=== PATIENT | male | born 1940 | race Caucasian/White ===

== ENCOUNTER 2017-06-06 16:39 | Inpatient (IN) | payer MEDICARE ==
[~2017-06-06 16:39] MED LIST: ALFU10TA2 PO; AMLO5TAB96 PO; ASCO500C PO; ASPI81TA82 PO; ATOR20TA42 PO; CALCCHW25 PO; CENTTAB9 PO; EZET10 PO; FENO50TA PO; LISI-360 PO; POTA99TA12 PO; PROT40TA PO; VENL-39 PO
[2017-06-06 16:58] VITALS: BP 155/85; PULSE 100; RESP 28; TEMP 98; O2SAT 95
[2017-06-06 17:37] LABS: AUTOMATED NEUTROPHIL # 11.1 TH/MM3 (1.8-7.7); BASOPHIL % 0.1 % (0.0-2.0); EOSINOPHIL # 0.1 TH/MM3 (0-0.4); EOSINOPHIL % 0.6 % (0.0-4.0); HEMOGLOBIN 13.2 GM/DL (13.0-17.0); LYMPH % 12.1 % (9.0-44.0); LYMPHOCYTE # 1.7 TH/MM3 (1.0-4.8); MEAN CORPUSCULAR HEMOGLOBIN 31.5 PG (27.0-34.0); MEAN CORPUSCULAR HGB CONC 34.6 % (32.0-36.0); MEAN PLATELET VOLUME 7.7 FL (7.0-11.0); MONO % 6.3 % (0.0-8.0); MONOCYTE # 0.9 TH/MM3 (0-0.9); NEUT % 80.9 % (16.0-70.0); PLATELET COUNT 278 TH/MM3 (150-450); RED BLOOD COUNT 4.18 MIL/MM3 (4.50-5.90); RED CELL DISTRIBUTION WIDTH 14.4 % (11.6-17.2); WHITE BLOOD COUNT 13.7 TH/MM3 (4.0-11.0)
--- NOTE | 2017-06-06 17:43 | RADRPT ---
EXAM DATE/TIME: 06/06/2017 17:30 [facility] COMPARISON: No previous studies available for comparison. INDICATIONS : Shortness of breath. MEDICAL HISTORY : None. SURGICAL HISTORY : None. ENCOUNTER: Initial ACUITY: 1 day PAIN SCORE: 0/10 LOCATION: Bilateral chest FINDINGS: PA and lateral views of the chest demonstrate the lungs to be symmetrically aerated without evidence of mass, infiltrate or effusion. The cardiomediastinal contours are unremarkable. Mild anterior wedg ing of 2 midthoracic vertebral bodies. CONCLUSION: 1. No acute cardiopulmonary disease. 2. Age-indeterminate compression deformities involving 2 midthoracic vertebral bodies. Jw Lezama Jr., MD on June 06, 2017 at 17:40 Board Certified Radiologist. This report was verified electronically.
[2017-06-06 17:48] LABS: INTERNATIONAL NORMALIZED RATIO 1.1 RATIO; PROTHROMBIN TIME - PATIENT 10.7 SEC (9.8-11.6)
[2017-06-06 18:00] LABS: BILIRUBIN, URINE NEG (NEG); BLOOD, URINE NEG (NEG); GLUCOSE,URINE NEG (NEG); KETONE, URINE NEG (NEG); MUCUS URINE FEW /lpf (OCC); NITRITE,URINE NEG (NEG); URINE COLOR YELLOW (YELLW/STRAW); URINE LEUKOCYTE ESTERASE NEG (NEG)
[2017-06-06 18:05] LABS: ALBUMIN 4.2 GM/DL (3.4-5.0); AST (GOT) 24 U/L (15-37); BICARBONATE 24.5 MEQ/L (21.0-32.0); BLOOD UREA NITROGEN 34 MG/DL (7-18); CALCIUM 9.3 MG/DL (8.5-10.1); CHLORIDE 104 MEQ/L (98-107); CREATININE 2.48 MG/DL (0.60-1.30); GLOMERULAR FILTRATION RATE 26 ML/MIN (>89); GLUCOSE,RANDOM 127 MG/DL (74-106); SODIUM (NA) 136 MEQ/L (136-145)
[2017-06-06 18:21] LABS: ALKALINE PHOSPHATASE 46 U/L (45-117); ALT (GPT) 37 U/L (12-78); TOTAL BILIRUBIN ADULT 0.4 MG/DL (0.2-1.0); TOTAL PROTEIN 8.6 GM/DL (6.4-8.2); TROPONIN I LESS THAN 0.02 NG/ML (0.02-0.05)
--- NOTE | 2017-06-06 19:18 | RADRPT ---
EXAM DATE/TIME: 06/06/2017 18:31 [facility] COMPARISON: No previous studies available for comparison. INDICATIONS : Dizziness. RADIATION DOSE: 56.35 CTDIvol (mGy) MEDICAL HISTORY : Hypertension. Cardiovascular disease SURGICAL HISTORY : None. ENCOUNTER: Initial ACUITY: 1 day PAIN SCALE: 0/10 LOCATION: cranial TECHNIQUE: Multiple contiguous axial images were obtained of the head. Using automated exposure control and adj ustment of the mA and/or kV according to patient size, radiation dose was kept as low as reasonably a chievable to obtain optimal diagnostic quality images. DICOM format image data is available electro nically for review and comparison. FINDINGS: CEREBRUM: The ventricles are normal for age. No evidence of midline shift, mass lesion, hemorrhage or acute in farction. No extra-axial fluid collections are seen. POSTERIOR FOSSA: The cerebellum and brainstem are intact. The 4th ventricle is midline. The cerebellopontine angle i s unremarkable. EXTRACRANIAL: The visualized portion of the orbits is intact. SKULL: The calvaria is intact. No evidence of skull fracture. CONCLUSION: 1. No acute findings in the brain. Jw Davis MD on June 06, 2017 at 19:16 Board Certified Radiologist. This report was verified electronically.
[2017-06-06 19:42] VITALS: BP 147/71; PULSE 91; RESP 16; O2SAT 85
--- NOTE | 2017-06-06 19:46 | PD ---
HPI Chief Complaint: Syncope/Near-Syncope Time Seen by Provider: 19:34 Travel History International Travel<30 days: No Contact w/Intl Traveler<30days: No Traveled to known affect area: No History of Present Illness HPI The patient is a 76 year old male who presents to the [facility] emergency department with a 1 and a half month history of interim lightheaded sensation and dyspnea on exertion. Patient reports having an occasional dry cough. The patient reports that it began shortly after in late March being diagnosed with influenza. The patient reports that he seemed to recover from the acute illness, however the symptoms have remained. He has seen his primary care physician regarding this. He has also been referred to his barrel finisher. He reports that he last had a stress test done in 2014. He had a cardiac catheterization last done approximately 15 years ago that was unremarkable. He denies any prior history of coronary artery disease, NE, congestive heart failure, DVT, or PE. He reports that he has been diagnosed with mild COPD in the past. He denies being on any inhalers. On review of systems otherwise, the patient denies having any known recent fevers, chest congestion, lower extremity edema or calf pain, neck pain, chest pain, abdominal pain, vomiting, diarrhea, or neurologic symptoms. The patient presents this evening to the emergency department after having a syncopal event at home. The patient was witnessed to have a syncopal event. The patient had his blood pressure taken just after the event and it was noted to be 77/44 with a pulse of 85. The person that witnessed the syncopal event is available at this time and reports that he had shaking of his arms briefly and then fell to the ground on his buttock area. The patient reports that he has tailbone pain, buttock pain, right shoulder pain. The patient denies having any loss of bowel or bladder control with this. He denies having any tongue biting. The patient had no change in mentation after awakening from the syncopal event. Dr. Roland PCP Dr. Macdonald- Finishing Area Operator Dr. Booker- Urologist Dr. Jean Claude Us- Revenue Stamp Clerk [facility] Past Medical History Narrative Medical The patient's past medical history is significant for benign prostate hyperthrophy, COPD- borderline, depression, hyperlipidemia, heartburn, osteoporosis, influenza in late March. Arthritis: Yes (R HAND) Depression: Yes Cancer: No Cardiac Catheterization: Yes Cardiovascular Problems: Yes (HTN) High Cholesterol: Yes Congestive Heart Failure: No Diabetes: No Diverticulitis: Yes Endocrine: No GERD: Yes Genitourinary: No Hypertension: Yes Immune Disorder: No Musculoskeletal: Yes Neurologic: No Psychiatric: No Respiratory: No Immunizations Current: Yes Sleep Apnea: Yes (cpap) Triglycerides - High: Yes Past Surgical History Narrative Surgical The patient's past surgical history is significant for tonsillectomy, cardiac cath- 15 years ago, colostomy and reversal due to diverticulitis. Abdominal Surgery: Yes (COLOSTOMY;REVERSED) Cardiac Surgery: Yes (CARDIAC CATH) Coronary Artery Bypass Graft: No Tonsillectomy: Yes Other Surgery: Yes Social History Alcohol Use: Yes (occas) Tobacco Use: No (quit in 1976.) Substance Use: No Allergies-Medications (Allergen,Severity, Reaction): Coded Allergies: niacin (Unverified Allergy, Severe, Hives, 11/15/16) Reported Meds & Prescriptions Reported Meds & Active Scripts Active Reported Co Q-10 (Coenzyme Q10 (Ubidecarenone)) 200 Mg Cap Centrum (Multiple Vitamins W/ Minerals) 1 Chew 1 Tab CHEW DAILY Calcium 500 +D (Calcium Carbonate-Cholecalciferol) 500-400 Mg-Unit Tab 3 Tab PO BID Vitamin D-1000 (Cholecalciferol) 1,000 Unit Tab 1,000 Units PO DAILY Vitamin C ER (Ascorbic Acid) 500 Mg Liat 500 Mg PO Aspirin 81 (Aspirin) 81 Mg Tabdr 81 Mg PO DAILY Alendronate (Alendronate Sodium) 70 Mg Tab 70 Mg PO Q7D Sertraline (Sertraline HCl) 50 Mg Tab 50 Mg PO DAILY Pantoprazole (Pantoprazole Sodium) 40 Mg Tab 40 Mg PO DAILY Alfuzosin HCl ER (Alfuzosin HCl) 10 Mg Tab Amlodipine (Amlodipine Besylate) 5 Mg Tab 5 Mg PO DAILY Zetia (Ezetimibe) 10 Mg Tab 10 Mg PO DAILY Atorvastatin (Atorvastatin Calcium) 20 Mg Tab 20 Mg PO HS Effexor (Venlafaxine HCl) 75 Mg Tab 75 Mg PO Q12H Tricor (Fenofibrate) 145 Mg Tab 145 Mg PO DAILY Takw with food. Review of Systems Except as stated in HPI: all other systems reviewed are Neg General / Constitutional: No: Fever Eyes: No: Visual changes HENT: No: Headaches Cardiovascular: Positive: Syncope, Dyspnea on exertion, No: Chest Pain or Discomfort Respiratory: Positive: Cough, Shortness of Breath Gastrointestinal: No: Nausea, Vomiting, Diarrhea, Abdominal Pain Genitourinary: Positive: Frequency, No: Urgency, Dysuria Musculoskeletal: No: Pain Skin: No Rash Neurologic: Positive: Syncope, No: Weakness, Focal Abnormalities, Change in Mentation, Slurred Speech, Sensory Disturbance Psychiatric: No: Depression Endocrine: No: Polydipsia Hematologic/Lymphatic: No: Easy Bruising Physical Exam Narrative General: The patient is a well-developed well-nourished male in no acute distress. The patient was placed on the monitor on arrival back to the room and the patient's O2 saturation on room air is 85%. The patient was placed on 2 L nasal cannula O2 and is saturating 92-93%. Head and Neck exam: Head is normocephalic atraumatic. Eyes: EOMI, pupils are equal round and reactive to light. Nose: Midline septum with pink mucous membranes Mouth: Dentition unremarkable. Moist mucus membranes. Posterior oropharynx is not erythematous. No tonsillar hypertrophy. Uvula midline. Airway patent. Neck: No palpable lymphadenopathy. No nuchal rigidity. No thyromegaly. Cardiovascular: Regular rate and rhythm without murmurs, gallops, or rubs. No pulse deficit to the extremities on simultaneous auscultation and palpation of his radial artery. Lungs: Clear to auscultation bilaterally. No wheezes, rhonchi, or rales. Abdomen: Soft, without tenderness to palpation in all 4 quadrants of the abdomen. No guarding, rebound, or rigidity. Normal bowel sounds are audible. No tenderness on palpation of McBurney's point. Negative Burrows sign Extremities: No clubbing or cyanosis. The patient has trace pedal edema. 2+ pulses in all 4 extremities. No calf tenderness on palpation. The patient reports having some tenderness on palpation of the proximal humerus. There is no crepitus or loss of range of motion. The patient reports increased pain with flexing his shoulder and abducting above his head. He has no weakness Back: No spinous process tenderness to palpation. No step-off or crepitus, no erythema or ecchymosis. The patient does have tenderness on palpation along the coccyx. No crepitus. No bruising noted. No costovertebral angle tenderness to palpation. Neurologic Exam: Cranial nerves 2-12 were intact on exam. Strength is 5/5 in all 4 extremities. No sensory deficits noted. Skin Exam: No rash noted. Intact skin that is warm and dry. Data Data Last Documented VS Vital Signs Date Time Temp Pulse Resp B/P (MAP) Pulse Ox O2 Delivery O2 Flow Rate FiO2 06/06/17 19:42 91 16 147/71 (96) 85 Room Air 06/06/17 16:58 98.0 Orders Orders Electrocardiogram (06/06/17 17:00) Complete Blood Count With Diff (06/06/17 17:00) Comprehensive Metabolic Panel (06/06/17 17:00) Magnesium (Mg) (06/06/17 17:00) Ckmb (Isoenzyme) Profile (06/06/17 17:00) Troponin I (06/06/17 17:00) Act Partial Throm Time (Ptt) (06/06/17 17:00) Prothrombin Time / Inr (Pt) (06/06/17 17:00) Urinalysis - C+S If Indicated (06/06/17 17:00) Chest, Pa & Lat (06/06/17 17:00) Ct Brain W/O Iv Contrast(Rout) (06/06/17 17:00) CKMB (06/06/17 17:20) CKMB% (06/06/17 17:20) Ct Thor Spine W/O Contrast (06/06/17 19:53) Ct Lumb Spine W/O Contrast (06/06/17 19:53) B-Type Natriuretic Peptide (06/06/17 19:53) Shoulder, Complete (>2vws) (06/06/17 19:53) Sacrum And Coccyx (06/06/17 ) Sodium Chlorid 0.9% 500 Ml Inj (Ns 500 M (06/06/17 20:15) Ventilation & Perfusion Scan (06/06/17 ) Admit Order (Ed Use Only) (06/06/17 21:58) Labs Laboratory Tests Test 06/06/17 17:20 White Blood Count 13.7 TH/MM3 Red Blood Count 4.18 MIL/MM3 Hemoglobin 13.2 GM/DL Hematocrit 38.0 % Mean Corpuscular Volume 91.0 FL Mean Corpuscular Hemoglobin 31.5 PG Mean Corpuscular Hemoglobin Concent 34.6 % Red Cell Distribution Width 14.4 % Platelet Count 278 TH/MM3 Mean Platelet Volume 7.7 FL Neutrophils (%) (Auto) 80.9 % Lymphocytes (%) (Auto) 12.1 % Monocytes (%) (Auto) 6.3 % Eosinophils (%) (Auto) 0.6 % Basophils (%) (Auto) 0.1 % Neutrophils # (Auto) 11.1 TH/MM3 Lymphocytes # (Auto) 1.7 TH/MM3 Monocytes # (Auto) 0.9 TH/MM3 Eosinophils # (Auto) 0.1 TH/MM3 Basophils # (Auto) 0.0 TH/MM3 CBC Comment DIFF FINAL Differential Comment Prothrombin Time 10.7 SEC Prothromb Time International Ratio 1.1 RATIO Activated Partial Thromboplast Time 26.4 SEC Urine Color YELLOW Urine Turbidity CLEAR Urine pH 6.0 Urine Specific [place] 1.020 Urine Protein TRACE mg/dL Urine Glucose (UA) NEG mg/dL Urine Ketones NEG mg/dL Urine Occult Blood NEG Urine Nitrite NEG Urine Bilirubin NEG Urine Urobilinogen LESS THAN 2.0 MG/DL Urine Leukocyte Esterase NEG Urine RBC LESS THAN 1 /hpf Urine WBC 1 /hpf Urine Mucus FEW /lpf Microscopic Urinalysis Comment CULT NOT INDICATED Blood Urea Nitrogen 34 MG/DL Creatinine 2.48 MG/DL Random Glucose 127 MG/DL Total Protein 8.6 GM/DL Albumin 4.2 GM/DL Calcium Level 9.3 MG/DL Magnesium Level 2.0 MG/DL Alkaline Phosphatase 46 U/L Aspartate Amino Transf (AST/SGOT) 24 U/L Alanine Aminotransferase (ALT/SGPT) 37 U/L Total Bilirubin 0.4 MG/DL Sodium Level 136 MEQ/L Potassium Level 4.5 MEQ/L Chloride Level 104 MEQ/L Carbon Dioxide Level 24.5 MEQ/L Anion Gap 8 MEQ/L Estimat Glomerular Filtration Rate 26 ML/MIN Total Creatine Kinase 129 U/L Creatine Kinase MB 0.8 NG/ML Troponin I LESS THAN 0.02 NG/ML B-Type Natriuretic Peptide 37 PG/ML MDM Medical Decision Making Medical Screen Exam Complete: Yes Emergency Medical Condition: Yes Medical Record Reviewed: Yes Interpretation(s) Last Impressions Thoracic Spine CT 06/06/171952 Signed Impressions: Service Date/Time: Tuesday, June 06, 2017 20:31 - CONCLUSION: 1. No evidence of acute bony injury. 2. Old compression deformities of T7 and T8. Jw Davis MD Shoulder X-Ray 06/06/171952 Signed Impressions: Service Date/Time: Tuesday, June 06, 2017 20:23 - CONCLUSION: No evidence of fracture or dislocation. Jw Davis MD Lumbar Spine CT 06/06/171952 Signed Impressions: Service Date/Time: Tuesday, June 06, 2017 20:31 - CONCLUSION: 1. No evidence of fracture or spondylolisthesis. 2. Multilevel discogenic degenerative changes with severe spinal stenosis at L2-3 and lesser severe epidural impressions from L3-S1. Jw Davis MD Head CT 06/06/[id number] Signed Impressions: Service Date/Time: Tuesday, June 06, 2017 18:31 - CONCLUSION: 1. No acute findings in the brain. Jw Davis MD Chest X-Ray 06/06/[id number] Signed Impressions: Service Date/Time: Tuesday, June 06, 2017 17:30 - CONCLUSION: 1. No acute cardiopulmonary disease. 2. Age-indeterminate compression deformities involving 2 midthoracic vertebral bodies. Jw Lezama Jr., MD Sacrum and Coccyx X-Ray 06/06/17 0000 Signed Impressions: Service Date/Time: Tuesday, June 06, 2017 20:25 - CONCLUSION: Negative examination of the sacrum and coccyx. Jw Davis MD Lung Scan-V Nuclear Medicine 06/06/17 0000 Signed Impressions: Service Date/Time: Tuesday, June 06, 2017 21:13 - CONCLUSION: 1. Low probability pulmonary embolism. 2. Minimally heterogeneous delivery of aerosol within the periphery of the lungs suggests obstructive airways disease. Jw Davis MD Differential Diagnosis Cardiac arrhythmia, versus congestive heart failure from myocarditis, versus other cardiomyopathy, versus pulmonary embolism, versus pneumonia, versus acute coronary syndrome Narrative Course During the course of the patient's emergency department visit, the patient's history, examination, and differential diagnosis were reviewed with the patient. The patient was placed on a certified orthotic fitter with oximetry and frequent blood pressure monitoring. The patient had IV access obtained and blood work sent for analysis. The patient had an EKG done on arrival. The patient's EKG shows a sinus rhythm heart rate of 96 with a QRS duration of 100 ms, QTC [address] segment elevation. The patient was initially provided 2 L nasal cannula O2 for hypoxemia on room air. The patient's laboratory studies were reviewed and remarkable for a CMP that is remarkable for a BUN of 34, creatinine 2.48 which is compared to the last BUN and creatinine done at this facility and is elevated compared to 2015 with a BUN of 32, creatinine 1.22. Cardiac enzymes within normal limits. Radiology studies were reviewed and remarkable for a chest x-ray that showed no acute abnormality, T-spine compression fractures were noted the age of which was unable to be determined. CT scan of the brain showed no acute abnormality. T-spine CT shows a T-spine compression fracture at level 7 and 8 which appears to be old, CT scan of lumbar spine shows no evidence of fracture or spondylolisthesis, however the multilevel discogenic degenerative changes with severe spinal stenosis at L2-3 and lesser severe epidural impressions from L3 through S1. Shoulder x-ray showed no fracture or dislocation. VQ scan showed low probability PE, minimally heterogeneous delivery of aerosol within the periphery of the lungs suggestive of obstructive airway disease. The patient was given a DuoNeb 1. The patient's results were discussed with the patient, including the plan of care. I explained that further testing and/ or monitoring is indicated based on the patient's history, examination, and/ or laboratory findings. Therefore, I recommended admission for additional evaluation. The patient expressed understanding and was agreeable with this plan. The patient was admitted to the hospital in stable condition and sent to a bed under the care of Dr. Roland. Physician Communication Physician Communication The patient's case including history, pertinent physical examination findings, and laboratory studies were discussed with Dr. Roland. It was agreed that the patient would be admitted to his service. Diagnosis Primary Impression: Syncope and collapse Additional Impression: Hypoxemia Admitting Information Admitting Physician Requests: Admit Tracee Sadler MD Jun 06, 2017 19:46
[2017-06-06] MEDS ORDERED: ATOR20TA15 PO (19:52)
[2017-06-06] MEDS ORDERED: PANT40TA3 PO (19:52)
[2017-06-06] MEDS ORDERED: SERT-132 PO (19:52)
[2017-06-06] MEDS ORDERED: ALEN1TAB48 PO (19:52)
[2017-06-06] MEDS ORDERED: ASPI1TAB57 PO (19:52)
[2017-06-06] MEDS ORDERED: CENTCHW4 CHEW (19:52)
[2017-06-06] MEDS ORDERED: COQ1200C3 (19:52)
[2017-06-06] MEDS ORDERED: AMLO5TAB2 PO (19:52)
[2017-06-06] MEDS ORDERED: CALC1TAB12 PO (19:52)
[2017-06-06] MEDS ORDERED: ALFU10TA3 (19:52)
[2017-06-06] MEDS ORDERED: FENO50TA PO (19:52)
[2017-06-06] MEDS ORDERED: VITA500T83 PO (19:52)
[2017-06-06] MEDS ORDERED: EZET10 PO (19:52)
[2017-06-06] MEDS ORDERED: VITA1000 PO (19:52)
[2017-06-06] MEDS ORDERED: VENL75TA PO (19:52)
[2017-06-06] MEDS ORDERED: SODIUM CHLORID 0.9% 500 ML INJ 500 ML IV ONE (20:15)
--- NOTE | 2017-06-06 20:46 | RADRPT ---
EXAM DATE/TIME: 06/06/2017 20:23 [facility] COMPARISON: No previous studies available for comparison. INDICATIONS : Right shoulder pain after fall. MEDICAL HISTORY : Hypertension. Cardiovascular disease. SURGICAL HISTORY : None. ENCOUNTER: Initial ACUITY: 1 day PAIN SCORE: 6/10 LOCATION: Right shoulder. FINDINGS: Multiple view examination of the right shoulder demonstrates no evidence of fracture or dislocation. The glenohumeral and acromioclavicular joints are maintained. There is a small ossific density carmen cent to the clavicle at the a.c. joint which is well corticated and probably related to degenerative changes in the a.c. joint. There is normal range of motion between internal and external rotation. The visualized right upper ribs are intact. Bony mineralization is normal. CONCLUSION: No evidence of fracture or dislocation. Jw Davis MD on June 06, 2017 at 20:43 Board Certified Radiologist. This report was verified electronically.
--- NOTE | 2017-06-06 20:47 | RADRPT ---
EXAM DATE/TIME: 06/06/2017 20:25 [facility] COMPARISON: No previous studies available for comparison. INDICATIONS : Lower back pain after fall. MEDICAL HISTORY : Hypertension. Cardiovascular disease. SURGICAL HISTORY : None. ENCOUNTER: Initial ACUITY: 1 day PAIN SCORE: 5/10 LOCATION: Lower back. FINDINGS: Two-view examination of the sacrum and coccyx demonstrates no evidence of fracture or malalignment. The sacral ala and foramina appear symmetric and intact. The coccyx appears unremarkable. The preve rtebral soft tissues are within normal limits. Several hemoclips in the midline pelvis. A CONCLUSION: Negative examination of the sacrum and coccyx. Jw Davis MD on June 06, 2017 at 20:45 Board Certified Radiologist. This report was verified electronically.
--- NOTE | 2017-06-06 22:25 | RADRPT ---
EXAM DATE/TIME: 06/06/2017 20:31 [facility] COMPARISON: No previous studies available for comparison. INDICATIONS : Trauma; fall. RADIATION DOSE: 36.66 CTDIvol (mGy) MEDICAL HISTORY : Cardiovascular disease. Hypertension. SURGICAL HISTORY : None. ENCOUNTER: Initial ACUITY: 1 day PAIN SCALE: 5/10 LOCATION: Bilateral lumbar TECHNIQUE: Volumetric scanning of the lumbar spine was performed. Multiplanar reconstructions in the sagittal, coronal and oblique axial planes were performed. Using automated exposure control and adjustment of the mA and/or kV according to patient size, radiation dose was kept as low as reasonably achievable t o obtain optimal diagnostic quality images. DICOM format image data is available electronically for review and comparison. FINDINGS: There is diffuse osteopenia with prominent vertical striations and trabecular pattern. Vertebral bod y height is maintained no evidence of subluxation. There is vacuum phenomenon in the L3-4, L4-5, and L5-S1 discs and moderate loss of disc space height L4-S1. The posterior elements remain in normal a lignment. There is mild curvature of the lumbar spine convex towards the left. T12-L1: The thecal sac has a normal diameter. No evidence of disc bulge or protrusion. The neural foramina are patent bilaterally. L1-L2: The thecal sac has a normal diameter. No evidence of disc bulge or protrusion. The neural foramina are patent bilaterally. L2-L3: Severe spinal stenosis due to a combination of broad-based bulging of the disc and bilateral facet kip int hypertrophy. The AP dimension of the thecal sac is narrowed to 4 mm. L3-L4: Broad-based bulging of the disc flattens the ventral thecal sac and extends into the neural foramen b ilaterally. There is also bilateral bony neural foraminal stenosis. AP dimension of the thecal sac measures 6 mm. L4-L5: Broad-based bulging of the disc and bilateral facet joint hypertrophy cause moderate severity bilater al lateral recess stenosis and mild spinal stenosis with AP dimension of the thecal sac measuring 9 m m. L5-S1: Central protrusion of the disc indents on the thecal sac. There is also bilateral facet joint hypert rophy causing moderate severity bilateral lateral recess stenosis. CONCLUSION: 1. No evidence of fracture or spondylolisthesis. 2. Multilevel discogenic degenerative changes with severe spinal stenosis at L2-3 and lesser severe e pidural impressions from L3-S1. Jw Davis MD on June 06, 2017 at 22:19 Board Certified Radiologist. This report was verified electronically.
--- NOTE | 2017-06-06 22:27 | RADRPT ---
EXAM DATE/TIME: 06/06/2017 20:31 [facility] COMPARISON: No previous studies available for comparison. INDICATIONS : Trauma; fall. RADIATION DOSE: 36.66 CTDIvol (mGy) ; Combined studies - Thoracic Spine/Lumbar Spine MEDICAL HISTORY : Hypertension. Cardiovascular disease SURGICAL HISTORY : None. ENCOUNTER: Initial ACUITY: 1 day PAIN SCALE: 5/10 LOCATION: Bilateral thoracic TECHNIQUE: Volumetric scanning of the thoracic spine was performed. Multiplanar reconstructions in the sagittal , coronal and oblique axial planes were performed. Using automated exposure control and adjustment o f the mA and/or kV according to patient size, radiation dose was kept as low as reasonably achievable to obtain optimal diagnostic quality images. DICOM format image data is available electronically f or review and comparison. FINDINGS: There is normal alignment of the vertebral bodies of the thoracic spine. 30% compression deformities of the anterior T7 and T8 vertebral bodies have intact cortex suggesting that these are old deformit ies. The posterior elements are in normal alignment. There is evidence of diffuse osteopenia with p rominent vertical striation of the trabecular pattern. No significant paraspinal soft tissue thicken ing. CONCLUSION: 1. No evidence of acute bony injury. 2. Old compression deformities of T7 and T8. Jw Davis MD on June 06, 2017 at 22:23 Board Certified Radiologist. This report was verified electronically.
--- NOTE | 2017-06-06 23:03 | RADRPT ---
EXAM DATE/TIME: 06/06/2017 21:13 [facility] COMPARISON: CHEST PA & LAT, June 06, 2017, 17:30. INDICATIONS : Dyspnea with syncope. DOSE: 8.8 mCi Tc99m MAA IV 0.9 mCi Tc99m DTPA aerosol MEDICAL HISTORY : Hypertension. Gastroesophageal reflux disease. Myocardial infarction. Coronary artery disease and con gestive heart failure. SURGICAL HISTORY : Tonsillectomy. ENCOUNTER: Initial ACUITY: 1 day PAIN SCALE: 0/10 LOCATION: Chest. TECHNIQUE: Following five minutes of tidal breathing of DTPA aerosol, planar images of the lungs were performed in eight projections. The patient was then injected with MAA, and eight-view perfusion scan was perf ormed. FINDINGS: There is a mildly heterogeneous pattern of aerosol delivery to the periphery of both lungs. There is a minimal central deposition in the left lung. No focal ventilatory defects are seen. The perfusion lung scan demonstrates a mildly heterogeneous pattern of uptake in both lungs, congruen t with the ventilatory scan.. No segmental or subsegmental defects are seen. CONCLUSION: 1. Low probability pulmonary embolism. 2. Minimally heterogeneous delivery of aerosol within the periphery of the lungs suggests obstructive airways disease. Jw Davis MD on June 06, 2017 at 22:59 Board Certified Radiologist. This report was verified electronically.
[2017-06-06] MEDS ORDERED: RESP: ALBUTEROL 2.5 MG/IPRATROPIUM 0.5 MG NEB (SCH) NEB ONE (23:30)
[2017-06-06 23:47] VITALS: O2SAT 95
[2017-06-07] VITALS (10 sets, daily range): BP systolic 155–178; BP diastolic 70–82; PULSE 78–92; RESP 16–22; TEMP 97–97.8; O2SAT 93–98
[2017-06-07] MEDS ORDERED: SENNOSIDES 8.6 MG TAB PO PRN (01:45)
[2017-06-07] MEDS ORDERED: BISACODYL 10 MG SUPP RECTAL PRN (01:45)
[2017-06-07] MEDS ORDERED: ONDANSETRON HCL 4 MG/2 ML VIAL IVP PRN (01:45)
[2017-06-07] MEDS ORDERED: MAGNESIUM HYDROXIDE SUSP 30 ML CUP PO PRN (01:45)
[2017-06-07] MEDS ORDERED: NALOXONE HCL 0.4 MG/ML AMP IV PUSH PRN (01:45)
[2017-06-07] MEDS ORDERED: SODIUM CHLORIDE 0.9% FLUSH 10 ML FLUSH IV FLUSH PRN (01:45)
[2017-06-07] MEDS ORDERED: LACTULOSE SYRUP 20 GM/30 ML CUP PO PRN (01:45)
[2017-06-07] MEDS ORDERED: ACETAMINOPHEN 325 MG TAB PO PRN (01:45)
[2017-06-07] MEDS ORDERED: ENOXAPARIN SODIUM 40 MG/0.4 ML SYRINGE SQ SCH (01:45)
[2017-06-07] MEDS ORDERED: ALENDRONATE SODIUM 70 MG TAB PO SCH (02:00)
[2017-06-07] MEDS: SODIUM CHLOR 0.45% 1000 ML INJ 1,000 ML IV SCH ×2 (03:26→18:58)
[2017-06-07 04:54] LABS: AUTOMATED NEUTROPHIL # 6.3 TH/MM3 (1.8-7.7); BASOPHIL % 0.3 % (0.0-2.0); EOSINOPHIL # 0.3 TH/MM3 (0-0.4); EOSINOPHIL % 3.7 % (0.0-4.0); HEMATOCRIT 33.6 % (39.0-51.0); HEMOGLOBIN 11.4 GM/DL (13.0-17.0); LYMPHOCYTE # 1.6 TH/MM3 (1.0-4.8); MEAN CELL VOLUME 89.9 FL (80.0-100.0); MEAN CORPUSCULAR HEMOGLOBIN 30.4 PG (27.0-34.0); MEAN CORPUSCULAR HGB CONC 33.8 % (32.0-36.0); MEAN PLATELET VOLUME 7.7 FL (7.0-11.0); MONO % 7.5 % (0.0-8.0); MONOCYTE # 0.7 TH/MM3 (0-0.9); NEUT % 70.5 % (16.0-70.0); PLATELET COUNT 231 TH/MM3 (150-450); RED BLOOD COUNT 3.74 MIL/MM3 (4.50-5.90); RED CELL DISTRIBUTION WIDTH 14.3 % (11.6-17.2)
[2017-06-07 05:20] LABS: CALCIUM 8.6 MG/DL (8.5-10.1); CREATININE 1.89 MG/DL (0.60-1.30)
[2017-06-07] MEDS: RESP: ALBUTEROL 2.5 MG/IPRATROPIUM 0.5 MG NEB (SCH) NEB ×3 (07:41→20:17)
[2017-06-07] MEDS: EZETIMIBE 10 MG TAB PO SCH (09:00)
[2017-06-07] MEDS: SODIUM CHLORIDE 0.9% FLUSH 10 ML FLUSH IV FLUSH SCH ×2 (09:00→21:00)
--- NOTE | 2017-06-07 09:07 | HHI.HP ---
History of Present Illness Service INTERNAL MEDICINE Primary Care Physician RIGO ROLAND MD Admission Diagnosis ACUTE SYNCOPAL EPISODE. UNEXPLAINED HYPOXEMIA. Diagnoses: History of Present Illness This patient is a 76 year old male who is well known to me. He has been with several episodes of "nearly passing out" and "passing out" over the past few weeks. He was found to be in a state of orthostasis on a recent office visit and was also placed on a monitoring tech by his Photovoltaic Installation Technician. He now gives a history of attempting to heat some food in a microwave and as he reached to get a paper towel to cover the food to place it in the microwave, he felt very lightheaded and dropping to the floor. He does not remember the fall to the floor or actually hitting the floor. He was aroused afterwards by his grandson and was a bit "foggy". He states that he ate some food and "rather took it easy until his came home. Due to the event, she transported him to the [facility]. He is found with a presentation of syncope, hypoxemia and elevated bun/creatinine. Review of Systems Constitutional: COMPLAINS OF: Fatigue, Dizziness Cardiovascular: COMPLAINS OF: Palpitations, Dyspnea on Exertion Genitourinary: COMPLAINS OF: Urinary frequency, Urgency Past Family Social History Allergies: Coded Allergies: niacin (Unverified Allergy, Severe, Hives, 11/15/16) Past Medical History 1. Hypertension. 2. Hyperlipidemia. 3. Lumbar Disc Disease. 4. Osteoarthritis. 5, Low Back Syndrome. 6. Seasonal Allergies. 7. Gastroesophageal Reflux Disease. 8. Erectile Dysfunction. 9. Benign Prostatic Hypertrophy. 10. Chronic Obstructive Pulmonary Disease. 11. Marfan's Syndrome. 12. Diverticular Disease. 13. Mitral Valve Prolapse. Past Surgical History 1. Tonsillectomy. 2. Colostomy. 3. Reversal of Colostomy. 4. Cardiac Catheterization. 5. Colonoscopy. Family History Father is at age 85 with history of "Lung Problems" and Tuberculosis. Mother is at age 38 with history of Cancer of Unknown Type. He reports having one Brother and one Sister whereby their health status is not fully known. Son at age 50 with history of Marfan Syndrome Suspect and Hyperlipidemia. Son age 47 with history of Marfan Syndrome Suspect and Anxiety Disorder. Social History He was born in [place], [place]. He has ten years of formal education. 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 He is and he lives at home with his and his grandson. He is a nonsmoker and previously did drink one alcoholic beverage daily for many years. He now has extremely rare intake of alcohol. There is no use of recreational drugs. Physical Exam Vital Signs Vital Signs Date Time Temp Pulse Resp B/P (MAP) Pulse Ox O2 Delivery O2 Flow Rate FiO2 06/07/17 08:00 97.6 78 18 163/70 (101) 96 06/07/17 04:36 97.8 79 16 166/74 (104) 98 06/07/17 03:30 83 06/07/17 01:31 97.7 83 22 178/82 (114) 98 06/07/17 01:12 06/06/17 23:47 95 Nasal Cannula 2.00 06/06/17 19:42 91 16 147/71 (96) 85 Room Air 06/06/17 16:58 98.0 100 28 155/85 (108) 95 Physical Exam GENERAL: This is a well-nourished and well-developed patient who appears in no apparent distress at this time. SKIN: No rashes, ecchymoses or lesions. Cool and dry. HEAD: Atraumatic. Normocephalic. No temporal or scalp tenderness. EYES: Pupils equal round and reactive. Extraocular motions intact. No scleral icterus. No injection or drainage. ENT: Nose without bleeding, purulent drainage or septal hematoma. Throat without erythema, tonsillar hypertrophy or exudate. Uvula midline. Airway patent. NECK: Trachea midline. No JVD or lymphadenopathy. Supple, nontender, no meningeal signs. CARDIOVASCULAR: Regular rate and rhythm without murmurs, gallops, or rubs. RESPIRATORY: Clear to auscultation. Breath sounds are equal bilaterally, though somewhat distant. There are no wheezes, rales, or rhonchi. GASTROINTESTINAL: Abdomen soft, non-tender and nondistended. No hepato- splenomegaly or palpable masses. No guarding or any evidence of rebound. MUSCULOSKELETAL: Extremities without clubbing, cyanosis or edema. No joint tenderness, effusion, or edema noted. No calf tenderness. Negative Homans sign bilaterally. NEUROLOGICAL: Awake and alert. Cranial nerves II through XII intact. Motor and sensory grossly within normal limits. Five out of 5 muscle strength in all muscle groups. Normal speech. Laboratory Laboratory Tests Test 06/06/17 17:20 06/07/17 04:15 White Blood Count 13.7 9.0 Red Blood Count 4.18 3.74 Hemoglobin 13.2 11.4 Hematocrit 38.0 33.6 Mean Corpuscular Volume 91.0 89.9 Mean Corpuscular Hemoglobin 31.5 30.4 Mean Corpuscular Hemoglobin Concent 34.6 33.8 Red Cell Distribution Width 14.4 14.3 Platelet Count 278 231 Mean Platelet Volume 7.7 7.7 Neutrophils (%) (Auto) 80.9 70.5 Lymphocytes (%) (Auto) 12.1 18.0 Monocytes (%) (Auto) 6.3 7.5 Eosinophils (%) (Auto) 0.6 3.7 Basophils (%) (Auto) 0.1 0.3 Neutrophils # (Auto) 11.1 6.3 Lymphocytes # (Auto) 1.7 1.6 Monocytes # (Auto) 0.9 0.7 Eosinophils # (Auto) 0.1 0.3 Basophils # (Auto) 0.0 0.0 CBC Comment DIFF FINAL DIFF FINAL Differential Comment Prothrombin Time 10.7 Prothromb Time International Ratio 1.1 Activated Partial Thromboplast Time 26.4 Urine Color YELLOW Urine Turbidity CLEAR Urine pH 6.0 Urine Specific [place] 1.020 Urine Protein TRACE Urine Glucose (UA) NEG Urine Ketones NEG Urine Occult Blood NEG Urine Nitrite NEG Urine Bilirubin NEG Urine Urobilinogen LESS THAN 2.0 Urine Leukocyte Esterase NEG Urine RBC LESS THAN 1 Urine WBC 1 Urine Mucus FEW Microscopic Urinalysis Comment CULT NOT INDICATED Blood Urea Nitrogen 34 33 Creatinine 2.48 1.89 Random Glucose 127 111 Total Protein 8.6 Albumin 4.2 Calcium Level 9.3 8.6 Magnesium Level 2.0 Alkaline Phosphatase 46 Aspartate Amino Transf (AST/SGOT) 24 Alanine Aminotransferase (ALT/SGPT) 37 Total Bilirubin 0.4 Sodium Level 136 137 Potassium Level 4.5 4.0 Chloride Level 104 105 Carbon Dioxide Level 24.5 22.0 Anion Gap 8 10 Estimat Glomerular Filtration Rate 26 35 Total Creatine Kinase 129 Creatine Kinase MB 0.8 Troponin I LESS THAN 0.02 B-Type Natriuretic Peptide 37 Serum Osmolality 292 Result Diagram: 06/07/17 0415 06/07/17 041 Caprini VTE Risk Assessment Caprini VTE Risk Assessment: Mod/High Risk (score >= 2) Caprini Risk Assessment Model Point Value = 1 Point Value = 2 Point Value = 3 Point Value = 5 Age 41-60 Minor surgery BMI > 25 kg/m2 Swollen legs Varicose veins or History of unexplained or recurrent spontaneous Oral contraceptives or hormone replacement Sepsis (< 1 month) Serious lung disease, including pneumonia (< 1 month) Abnormal pulmonary function Acute myocardial infarction Congestive heart failure (< 1 month) History of inflammatory bowel disease Medical patient at bed rest Age 61-74 Arthroscopic surgery Major open surgery (> 45 min) Laparoscopic surgery (> 45 min) Malignancy Confined to bed (> 72 hours) Immobilizing plaster cast Central venous access Age >= 75 History of VTE Family history of VTE Factor V Leiden Prothrombin [id number] Lupus anticoagulant Anticardiolipin antibodies Elevated serum homocysteine Heparin-induced thrombocytopenia Other congenital or acquired thrombophilia Stroke (< 1 month) Elective arthroplasty Hip, pelvis, or leg fracture Acute spinal cord injury (< 1 month) Prophylaxis Regimen Total Risk Factor Score Risk Level Prophylaxis Regimen 0-1 Low Early ambulation 2 Moderate Order ONE of the following: *Sequential Compression Device (SCD) *Heparin 5000 units SQ BID 3-4 Higher Order ONE of the following medications: *Heparin 5000 units SQ TID *Enoxaparin/Lovenox 40 mg SQ daily (WT < 150 kg, CrCl > 30 mL/min) *Enoxaparin/Lovenox 30 mg SQ daily (WT < 150 kg, CrCl > 10-29 mL/min) *Enoxaparin/Lovenox 30 mg SQ BID (WT < 150 kg, CrCl > 30 mL/min) AND/OR *Sequential Compression Device (SCD) 5 or more Highest Order ONE of the following medications: *Heparin 5000 units SQ TID (Preferred with Epidurals) *Enoxaparin/Lovenox 40 mg SQ daily (WT < 150 kg, CrCl > 30 mL/min) *Enoxaparin/Lovenox 30 mg SQ daily (WT < 150 kg, CrCl > 10-29 mL/min) *Enoxaparin/Lovenox 30 mg SQ BID (WT < 150 kg, CrCl > 30 mL/min) AND *Sequential Compression Device (SCD) Assessment and Plan Assessment and Plan ASSESSMENT 1. Acute Syncopal Episode. 2. Acute Exacerbation of Chronic Obstructive Pulmonary Disease. 3. Acute Hypoxemia. 4. Acute Kidney Injury. 5. Orthostatic Hypotension. 6. Dehydration. 7. Benign Prostate Hypertrophy-r/o urinary tract obstruction. PLAN 1. Admit to the hospital as an Inpatient. 2. Intravenous hydration and electrolyte repletion. 3. Consultation to Pulmonary Medicine. 4. Consultation to Cardiology. 5. Sonogram of the Kidneys. 6. Follow up laboratory assessment. 7. DVT and PE prophylaxis Rigo Roland MD Jun 07, 2017 09:07
[2017-06-07] MEDS: ASPIRIN EC 81 MG TABEC PO SCH (09:29)
[2017-06-07] MEDS: MULTIVITAMINS/MINERALS THERAPEUTIC TAB PO SCH (09:29)
[2017-06-07] MEDS: FENOFIBRATE 145 MG TAB PO SCH (09:29)
[2017-06-07] MEDS: PANTOPRAZOLE SOD 40 MG DELAYED RELEASE TAB PO SCH (09:29)
[2017-06-07] MEDS: DOCUSATE SODIUM 50 MG/SENNA 8.6 MG TAB PO SCH ×2 (09:29→22:03)
[2017-06-07] MEDS: VENLAFAXINE HCL XR 75 MG CAP PO SCH (09:30)
[2017-06-07] MEDS: HEPARIN SODIUM - SQ 10,000 UNITS/ML VIAL SQ SCH ×2 (09:31→22:03)
--- NOTE | 2017-06-07 10:47 | RADRPT ---
EXAM DATE/TIME: 06/07/2017 09:43 [facility] COMPARISON: No previous studies available for comparison. INDICATIONS : Increased BUN and Creatinine. MEDICAL HISTORY : Hypertension. Hypercholesterolemia. Sleep apnea. Diverticulitis. GERD. Arthritis. SURGICAL HISTORY : Tonsillectomy. Colon resection. ENCOUNTER: Initial ACUITY: 2 days PAIN SCORE: 0/10 LOCATION: Bilateral flank MEASUREMENTS: RIGHT KIDNEY: 11.5 x 5.7 x 4.9 cm LEFT KIDNEY: 11.1 x 5.2 x 5.7 cm FINDINGS: RIGHT KIDNEY: Renal cortex is normal in thickness and echotexture. No hydronephrosis, stone, or mass. LEFT KIDNEY: Renal cortex is normal in thickness and echotexture. No hydronephrosis, stone, or mass. BLADDER: Within normal limits given the degree of distension. CONCLUSION: Normal examination. No evidence of significant cortical thinning or hydronephrosis. Kian Johnson MD on June 07, 2017 at 10:44 Board Certified Radiologist. This report was verified electronically.
[2017-06-07] MEDS: SERTRALINE HCL 50 MG TAB PO SCH (13:39)
--- NOTE | 2017-06-07 14:12 | EKG ---
Date Performed: 06/06/2017 Time Performed: 17:13:56 PTAGE: 76 years EKG: Sinus rhythm WITH FIRST DEGREE AV BLOCK LEFT ANTERIOR FASCICULAR BLOCK NONSPECIFIC T-WAVE ABNORMALITY ABNORMAL EC G PREVIOUS TRACING : 01/11/2015 01.55 DOCTOR: Jose Roque Interpretating Date/Time 06/07/2017 14:10:42
--- NOTE | 2017-06-07 14:51 | MB ---
cc: Moe Sadler MD DATE OF CONSULT: 06/07/2017 REASON FOR CONSULTATION: Evaluation of syncope. HISTORY OF PRESENT ILLNESS: Lambert Hugo is a 76-year-old man. I met him for an episode of syncope. He got woken up in the morning by his son and had breakfast, was getting ready to have lunch and he slumped over in the kitchen. Apparently was unresponsive for a while, though his son is not here to question whether he was pale or not. There was no bowel incontinence or urinary incontinence. Eventually, he came to. He has had some orthostatic problems in the past, and he has had several episodes of syncope and near syncope in the past. He has had quite a bit of workup previously by Dr. Ornelas. He has had previous Holter monitors and echocardiograms. He has a chronic first degree AV block on his EKG. His last echo was 02/15/2017. He had normal LV function, mild left atrial enlargement, no significant valvular disease. He had a Holter monitor 05/30/2016 showing rare PVCs and a few brief episodes of nonsustained SVT. Denies any palpitations during any of these episodes. Denies angina. Denies dyspnea. He is on some medications that can contribute to orthostasis. One of these is his prostate medication, alfuzosin 10 mg daily. He thinks he has been on that a long time. This is to help his stream strength and to reduce nocturia, apparently for an enlarged prostate. He is also on antihypertensive medications, which have been hold so far since he has been here in the ER. PAST MEDICAL HISTORY: Includes previous atypical chest pain with negative workups, COPD, followed by Dr. Us, chronic kidney disease, diverticulosis, hyperlipidemia, hypertension, question of Marfan syndrome in the past, previous syncope with previous admission in 2011. PAST SURGICAL PROCEDURES: Include cardiac catheterization 08/24/2001 that was normal, previous Brandi pouch for diverticulosis, tonsillectomy. SOCIAL HISTORY: Is a former smoker. Is retired. ALLERGIES: INCLUDE TRILIPIX, ZOCOR REVIEW OF SYSTEMS: Negative for bleeding. Remaining review of systems negative. PHYSICAL EXAMINATION: Well-developed, well-nourished white male in no acute distress. He has got mild systolic hypertension. HEENT: Unremarkable. NECK: No JVD, no bruits. CHEST: Clear to auscultation. CARDIAC: S1, S2. Regular rate and rhythm. I/ systolic ejection murmur. Carotids suggest possible slight bruit at the base of left carotid. ABDOMEN: Soft, nontender, no masses or organomegaly. EXTREMITIES: No clubbing, cyanosis or edema. EKG shows sinus rhythm with a first-degree AV block. LABORATORIES: Unremarkable. IMPRESSION: Syncope. Question whether this could be due to the alpha ezequiel, alfuzosin, he is on for his prostate. Also could be possibly from overmedication. His BUN and creatinine were quite elevated on admission, so I would recommend discontinuing valsartan and maybe using just amlodipine and seeing if he can do without alfuzosin. I have thought to implanting a loop recorder, but this does not sound particularly like an arrhythmia at this point, so is going to hold off. Thank you very much for asking me to see him. MD GERARD Martinez/RAY , 01:41 PM , 02:03 PM
--- NOTE | 2017-06-07 16:33 | MB ---
cc: Sheryl Saucedo MD DATE OF CONSULT: REASON FOR CONSULTATION: Patient with known COPD, had syncope this morning. HISTORY OF PRESENT ILLNESS: Mr. Hugo is a 76-year-old male who had "passed out" while in the kitchen today. He tells me his grandson was in the kitchen at that time, who is sitting at bedside and tells me that he had fainted and was shaking some, had loss of consciousness for a few minutes, after which he recovered. The patient is alert, oriented. His grandson tells me he is very short of breath normally when he walks around. He was given inhaled bronchodilators in the past, however, the patient said he does not use it. PAST MEDICAL HISTORY: Multiple syncopes. Apparently has COPD for which he was given treatment in the past which he declined to use. Hypertension, hyperlipidemia, diverticular disease, BPH. SOCIAL HISTORY: Quit smoking years ago. Drinks alcohol socially. No TB or industrial exposure. ALLERGIES: TRILIPIX, ZOCOR. CURRENT MEDICATIONS: Atorvastatin, aspirin, Zetia, Tricor, sertraline, venlafaxine, nebulizer albuterol ipratropium. FAMILY HISTORY: Noncontributory. REVIEW OF SYSTEMS: A 12-point review of systems as per HPI and past history, otherwise negative. PHYSICAL EXAMINATION: GENERAL: The patient is alert. Temperature 97.6, pulse 90, respirations 18, blood pressure 140/70. HEENT: Unremarkable. EYES: Without icterus. NECK: No adenopathy. No thyroid enlargement. Central trachea. CHEST: Without dullness to percussion. Clear to auscultation. CARDIAC: PMI distant. S1, S2 audible. No murmur. No rub. ABDOMEN: Lax. Bowel sounds audible. EXTREMITIES: No clubbing, cyanosis or edema. LABORATORY DATA: White count 9000, hemoglobin 11, hematocrit 33, platelets 231,000. Sodium 137, potassium 4.0, BUN 33, creatinine 1.89. Chest x-ray without acute disease. Ventilation perfusion lung scan with low probability for pulmonary embolism. IMPRESSION: 1. Chronic obstructive pulmonary disease by history. The patient is not using any medication at present. 2. Syncope followed by Dr. Moe Sadler. 3. Hypertension. 4. Hyperlipidemia. 5. Benign prostatic hypertrophy. PLAN: The patient is receiving nebulizer albuterol ipratropium which will be continued. Obtain pulmonary function. The patient has been seen by Dr. Jean Claude Us in the past and I will ask him to follow up his care. I do thank you for asking me to partake in Mr. Hugo's care. Sheryl Saucedo MD WWW/EDITA/rh , 03:23 PM , 03:56 PM
[2017-06-07] MEDS: ATORVASTATIN 20 MG TAB PO SCH (22:03)
[2017-06-08] VITALS: BP 161/74; PULSE 84; RESP 18; TEMP 98.2; O2SAT 92
[2017-06-08 04:00] VITALS: BP 164/72; PULSE 78; RESP 18; TEMP 97.9; O2SAT 92
[2017-06-08] MEDS: SODIUM CHLOR 0.45% 1000 ML INJ 1,000 ML IV SCH (05:41)
[2017-06-08 07:10] LABS: AUTOMATED NEUTROPHIL # 6.7 TH/MM3 (1.8-7.7); BASOPHIL % 0.3 % (0.0-2.0); EOSINOPHIL # 0.4 TH/MM3 (0-0.4); HEMATOCRIT 34.5 % (39.0-51.0); HEMOGLOBIN 11.8 GM/DL (13.0-17.0); LYMPH % 15.2 % (9.0-44.0); LYMPHOCYTE # 1.4 TH/MM3 (1.0-4.8); MEAN CELL VOLUME 90.3 FL (80.0-100.0); MEAN CORPUSCULAR HEMOGLOBIN 30.9 PG (27.0-34.0); MEAN CORPUSCULAR HGB CONC 34.2 % (32.0-36.0); MEAN PLATELET VOLUME 7.8 FL (7.0-11.0); MONO % 6.1 % (0.0-8.0); MONOCYTE # 0.6 TH/MM3 (0-0.9); NEUT % 74.4 % (16.0-70.0); PLATELET COUNT 252 TH/MM3 (150-450); RED BLOOD COUNT 3.82 MIL/MM3 (4.50-5.90); RED CELL DISTRIBUTION WIDTH 14.3 % (11.6-17.2)
[2017-06-08 07:27] LABS: BICARBONATE 22.7 MEQ/L (21.0-32.0); CALCIUM 8.4 MG/DL (8.5-10.1); CREATININE 1.57 MG/DL (0.60-1.30)
[2017-06-08] MEDS: FENOFIBRATE 145 MG TAB PO SCH (08:14)
[2017-06-08] MEDS: PANTOPRAZOLE SOD 40 MG DELAYED RELEASE TAB PO SCH (08:14)
[2017-06-08] MEDS: DOCUSATE SODIUM 50 MG/SENNA 8.6 MG TAB PO SCH ×2 (08:14→20:35)
[2017-06-08] MEDS: MULTIVITAMINS/MINERALS THERAPEUTIC TAB PO SCH (08:14)
[2017-06-08] MEDS: ASPIRIN EC 81 MG TABEC PO SCH (08:14)
[2017-06-08 08:15] VITALS: BP 185/83; PULSE 82; RESP 20; TEMP 98; O2SAT 90
[2017-06-08] MEDS: EZETIMIBE 10 MG TAB PO SCH (08:15)
[2017-06-08] MEDS: SODIUM CHLORIDE 0.9% FLUSH 10 ML FLUSH IV FLUSH SCH ×2 (08:15→20:36)
[2017-06-08] MEDS: SERTRALINE HCL 50 MG TAB PO SCH (08:15)
[2017-06-08] MEDS: VENLAFAXINE HCL XR 75 MG CAP PO SCH (08:15)
[2017-06-08] MEDS: HEPARIN SODIUM - SQ 10,000 UNITS/ML VIAL SQ SCH ×2 (08:15→20:35)
[2017-06-08] MEDS: RESP: ALBUTEROL 2.5 MG/IPRATROPIUM 0.5 MG NEB (SCH) NEB ×3 (08:36→20:00)
--- NOTE | 2017-06-08 10:09 | PD.CARD.PN ---
Subjective Subjective Remarks no complaints Objective Medications Current Medications Medications (Trade) Dose Ordered Sig/Liliana Route Start Time Stop Time Status Last Admin Sodium Chloride 1,000 ml @ 75 mls/hr [id number] IV 06/07/17 01:39 06/08/17 05:41 (NS Flush) 2 ml UNSCH PRN IV FLUSH 06/07/17 01:45 (NS Flush) 2 ml BID IV FLUSH 06/07/17 09:00 (Tylenol) 650 mg Q4H PRN PO 06/07/17 01:45 (Zofran Inj) 4 mg Q6H PRN IVP 06/07/17 01:45 (Narcan Inj) 0.4 mg UNSCH PRN IV PUSH 06/07/17 01:45 (Graciela-Colace) 1 tab BID PO 06/07/17 09:00 06/08/17 08:14 (Milk Of Magnesia Liq) 30 ml Q12H PRN PO 06/07/17 01:45 (Senokot) 17.2 mg Q12H PRN PO 06/07/17 01:45 (Dulcolax Supp) 10 mg DAILY PRN RECTAL 06/07/17 01:45 (Lactulose Liq) 30 ml DAILY PRN PO 06/07/17 01:45 (Heparin Inj) 5,000 units Q12HR SQ 06/07/17 09:00 06/08/17 08:15 (Duoneb Neb) 1 ampule TID NEB NEB 06/07/17 08:00 06/08/17 08:36 (Ecotrin Ec) 81 mg DAILY PO 06/07/17 09:00 06/08/17 08:14 (Lipitor) 20 mg HS PO 06/07/17 21:00 06/07/17 22:03 (Zetia) 10 mg DAILY PO 06/07/17 09:00 06/08/17 08:15 (Tricor) 145 mg DAILY PO 06/07/17 09:00 06/08/17 08:14 (Theragran M Tab) 1 tab DAILY PO 06/07/17 09:00 06/08/17 08:14 (Protonix) 40 mg DAILY PO 06/07/17 09:00 06/08/17 08:14 (Zoloft) 50 mg DAILY PO 3/7/18 09:00 06/08/17 08:15 (Effexor Xr) 150 mg DAILY PO 06/07/17 09:00 06/08/17 08:15 (Norvasc) 5 mg DAILY PO 06/08/17 10:00 Vital Signs / I&O Vital Signs Date Time Temp Pulse Resp B/P (MAP) Pulse Ox O2 Delivery O2 Flow Rate FiO2 06/08/17 08:37 Nasal Cannula 3.00 06/08/17 08:15 98.0 82 20 185/83 (117) 90 06/08/17 04:00 97.9 78 18 164/72 (102) 92 06/08/17 00:00 98.2 84 18 161/74 (103) 92 06/07/17 20:18 98 06/07/17 20:00 97.8 92 18 175/75 (108) 93 06/07/17 16:00 97.0 88 18 155/70 (98) 94 06/07/17 15:44 88 06/07/17 12:00 97.2 83 18 166/75 (105) 94 I/O 06/07/17 06/07/17 06/07/17 06/08/17 06/08/17 06/08/17 07:00 15:00 23:00 07:00 15:00 23:00 Intake Total 240 ml 1320 ml 1375 ml Output Total 500 ml 2600 ml 200 ml Balance -260 ml -1280 ml 1375 ml -200 ml Intake Oral 240 ml 1320 ml 500 ml IV Total 875 ml Output Urine Total 500 ml 2600 ml 200 ml # Voids 1 # Bowel Movements 0 Physical Exam GENERAL: Well developed, well nourished. No acute distress. HEENT: Jugular venous pressure is normal. CHEST: Lungs clear to auscultation bilaterally. Unlabored respiratory effort. CARDIAC: Regular rate and rhythm without S3, S4, or murmur. ABDOMEN: Soft, nontender, no hepatosplenomegaly. Bowel sounds present. EXTREMITIES: No clubbing, cyanosis, or edema. Laboratory Laboratory Tests Test 06/08/17 06:23 White Blood Count 9.0 TH/MM3 Red Blood Count 3.82 MIL/MM3 Hemoglobin 11.8 GM/DL Hematocrit 34.5 % Mean Corpuscular Volume 90.3 FL Mean Corpuscular Hemoglobin 30.9 PG Mean Corpuscular Hemoglobin Concent 34.2 % Red Cell Distribution Width 14.3 % Platelet Count 252 TH/MM3 Mean Platelet Volume 7.8 FL Neutrophils (%) (Auto) 74.4 % Lymphocytes (%) (Auto) 15.2 % Monocytes (%) (Auto) 6.1 % Eosinophils (%) (Auto) 4.0 % Basophils (%) (Auto) 0.3 % Neutrophils # (Auto) 6.7 TH/MM3 Lymphocytes # (Auto) 1.4 TH/MM3 Monocytes # (Auto) 0.6 TH/MM3 Eosinophils # (Auto) 0.4 TH/MM3 Basophils # (Auto) 0.0 TH/MM3 CBC Comment DIFF FINAL Differential Comment Blood Urea Nitrogen 25 MG/DL Creatinine 1.57 MG/DL Random Glucose 101 MG/DL Calcium Level 8.4 MG/DL Sodium Level 138 MEQ/L Potassium Level 4.3 MEQ/L Chloride Level 106 MEQ/L Carbon Dioxide Level 22.7 MEQ/L Anion Gap 9 MEQ/L Estimat Glomerular Filtration Rate 43 ML/MIN Assessment and Plan Problem List: (1) Orthostasis ICD Codes: I95.1 - Orthostatic hypotension (2) Renal failure ICD Codes: N19 - Unspecified kidney failure Plan: Markedly better off valsartan and after hydration. DC IV fluids. Avoid ACEI/ARB (3) HTN (hypertension) ICD Codes: I10 - Essential (primary) hypertension Status: Acute Plan: resume amlodipine. Increase to 10mg if necessary (4) Syncope and collapse ICD Codes: R55 - Syncope and collapse Status: Acute Plan: prob due to drop in standing BP Assessment and Plan Carotid Doppler ordered. OK with me to DC home later today. I would keep him off "zosins" for his prostate and SHARONA/ARB as mentioned above Moe Sadler MD Jun 08, 2017 10:08
[2017-06-08] MEDS: amLODIPine BESYLATE 5 MG TAB PO SCH (10:25)
[2017-06-08 12:18] VITALS: BP 157/88; PULSE 78; RESP 18; TEMP 97; O2SAT 99
--- NOTE | 2017-06-08 15:18 | RADRPT ---
EXAM DATE/TIME: 06/08/2017 14:21 [facility] COMPARISON: No previous studies available for comparison. INDICATIONS : Syncope. MEDICAL HISTORY : Hypercholesterolemia. Hypertension. Gastroesophageal reflux disease. Syncope. Hyperlipidemia. Diverti culitis. Sleep apnea. SURGICAL HISTORY : Colostomy. Tonsillectomy. Cardiac cath. ENCOUNTER: Initial ACUITY: 1 day PAIN SCORE: 3/10 LOCATION: Bilateral neck PEAK SYSTOLIC VELOCITIES (cm/sec): ICA/CCA RATIO: Right: 1.2 Left: 1.2 ICA: Right: 108 Left: 113 CCA: Right: 87 Left: 93 ECA: Right: 116 Left: 113 VERTEBRAL: Right: 55 antegrade Left: 72 antegrade Elevated flow velocities and ICA/CCA ratios have been found to correlate with increased degrees of vessel stenosis, calculated as percentage of diameter relative to a normal segment of distal ICA/CCA FINDINGS: RIGHT CAROTID: There is mild atherosclerotic plaquing at the carotid bifurcation. No significant stenosis is visuali zed. The waveforms are within normal limits. LEFT CAROTID: There is mild atherosclerotic plaquing at the carotid bifurcation. No significant stenosis is visuali zed. The waveforms are within normal limits. VERTEBRAL ARTERIES: Antegrade flow is seen in both vertebral arteries. MISCELLANEOUS: None. CONCLUSION: Mild atherosclerotic plaquing bilaterally. No focal high grade or hemodynamically significant stenosi sAnnie Molina MD on June 08, 2017 at 15:16 Board Certified Radiologist. This report was verified electronically.
--- NOTE | 2017-06-08 16:30 | HHI.PR ---
Subjective Remarks He was seen by Cardiology earlier and the disposition is noted. He reports continued shortness of breath with mild exertion. There is an improvement in the kidney function with the intravenous hydration. Recommendations as per Cardiology are noted. Objective - Vital Signs Date Time Temp Pulse Resp B/P (MAP) Pulse Ox O2 Delivery O2 Flow Rate FiO2 06/08/17 12:18 97.0 78 18 157/88 (111) 99 06/08/17 08:37 Nasal Cannula 3.00 06/08/17 08:15 98.0 82 20 185/83 (117) 90 06/08/17 04:00 97.9 78 18 164/72 (102) 92 06/08/17 00:00 98.2 84 18 161/74 (103) 92 06/07/17 20:18 98 06/07/17 20:00 97.8 92 18 175/75 (108) 93 I/O 06/07/17 06/07/17 06/07/17 06/08/17 06/08/17 06/08/17 07:00 15:00 23:00 07:00 15:00 23:00 Intake Total 240 ml 1320 ml 1375 ml 730 ml Output Total 500 ml 2600 ml 1825 ml Balance -260 ml -1280 ml 1375 ml -1095 ml Intake Oral 240 ml 1320 ml 500 ml 480 ml IV Total 875 ml 250 ml Output Urine Total 500 ml 2600 ml 1825 ml # Voids 1 # Bowel Movements 0 1 Result Diagram: 06/08/1762206/08/17 0623 Objective Remarks GENERAL: Alert and does not appear to be in any distress, except with exertion. SKIN: Warm and dry. HEAD: Normocephalic and atraumatic. EYES: No scleral icterus. No injection or drainage. NECK: Supple, trachea midline. No JVD or lymphadenopathy. CARDIOVASCULAR: Regular rate and rhythm without murmurs, gallops, or rubs. RESPIRATORY: Breath sounds equal bilaterally, though somewhat distant. No accessory muscle use. GASTROINTESTINAL: Abdomen soft, non-tender and nondistended. MUSCULOSKELETAL: No cyanosis, or edema. BACK: Nontender without obvious deformity. No CVA tenderness. NEUROLOGICAL: No obvious focal motor deficits. A/P Assessment and Plan 1. Acute Syncopal Episode. 2. Acute Exacerbation of Chronic Obstructive Pulmonary Disease. 3. Acute Hypoxemia. 4. Acute Kidney Injury. 5. Orthostatic Hypotension. 6. Dehydration. 7. Benign Prostate Hypertrophy-r/o urinary tract obstruction. PLAN 1. Continue on the new medication regimen. 2. Follow blood pressure and the heart rate closely. 3. Pulmonary Medicine follows. 4. Cardiology disposition is noted. 5. Arterial Blood Gas is to be done on Room Air. 6. Follow up laboratory assessment. 7. DVT and PE prophylaxis Rigo Roland MD Jun 08, 2017 16:30
[2017-06-08 16:58] VITALS: BP 160/72; PULSE 83; RESP 18; TEMP 98.2; O2SAT 93
--- NOTE | 2017-06-08 17:36 | MB ---
cc: Hattie Us MD DATE OF CONSULT: HISTORY OF PRESENT ILLNESS: Mr. 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 He has never had significant COPD or required maintenance bronchodilators. I last saw him roughly a year ago at which time things were stable. His CT scan had not been changed and we were monitoring that annually He presented on 06/06 with a syncopal episode. His grandson was at the event and took his blood pressure and pulse at the time and he was conscious. His blood pressure was about 70 systolic with heart rate of 85 as best we can tell. He was transported to the hospital. He has been here for 2 days, has been seen in consultation by Dr. Sadler who believes that orthostatic hypotension was the underlying etiology. His valsartan has been discontinued and IV fluids resolved the lightheadedness and syncopal symptoms. In addition, he had a chest x-ray on admission, which was actually clear. He also had a ventilation perfusion lung scan with a low probability of pulmonary embolism. His O2 saturations have been 90-93% but he has not had a walk test so we will order that on room air. He has not required oxygen prior to this. White count is 9000, hemoglobin is 11.8. BUN mildly elevated at 34 on admission with a creatinine of 2.48. With hydration, he is 25 and 1.5. GFR was from 26-43. It looks like he was probably dehydrated on presentation as well. At the time of this interview on 06/08 at 5:00 p.m., he is awake, alert, comfortable. He has had no dizziness or lightheadedness, up walking around. No chest pain. He has had no cough or congestion. He has had some progressive dyspnea, which will need to be followed up as an outpatient. He was due for his annual pulmonary function and CT which we will follow up. PHYSICAL EXAMINATION: VITAL SIGNS: Temperature 97%, pulse 80, respirations 18, blood pressure 160/70. NECK: No neck pain, distention. No adenopathy in the neck or supraclavicular region. CHEST: Completely clear. No basilar rales or wheezes. HEART: Regular rhythm, no harsh murmur, no edema or cyanosis. DISCUSSION: Mr. Hugo presented after a near syncopal episode. It sounds like he remained conscious. His blood pressure was documented to be low at the time and he has improved with hydration and discontinuation of a blood pressure pill. I do not think his pulmonary status was contributing to this but he does need to keep his annual visit with me next month. We will schedule a followup CT and pulmonary functions prior to that. He knows he can call if problems arise before that visit. I have also ordered a home walk test to see whether or not he does need oxygen at this point. R. MD DWAIN Newberry/MARLENY , 05:03 PM , 05:35 PM
[2017-06-08 20:34] VITALS: BP 158/74; PULSE 89; RESP 17; TEMP 98.6; O2SAT 94
[2017-06-08] MEDS: ATORVASTATIN 20 MG TAB PO SCH (20:34)
[2017-06-09] VITALS (8 sets, daily range): BP systolic 127–164; BP diastolic 66–77; PULSE 73–81; RESP 17–21; TEMP 97.5–98.9; O2SAT 92–95
[2017-06-09] MEDS: RESP: ALBUTEROL 2.5 MG/IPRATROPIUM 0.5 MG NEB (SCH) NEB ×3 (07:56→19:16)
[2017-06-09] MEDS: VENLAFAXINE HCL XR 75 MG CAP PO SCH (08:13)
[2017-06-09] MEDS: amLODIPine BESYLATE 5 MG TAB PO SCH (08:14)
[2017-06-09] MEDS: PANTOPRAZOLE SOD 40 MG DELAYED RELEASE TAB PO SCH (08:14)
[2017-06-09] MEDS: MULTIVITAMINS/MINERALS THERAPEUTIC TAB PO SCH (08:14)
[2017-06-09] MEDS: SERTRALINE HCL 50 MG TAB PO SCH (08:14)
[2017-06-09] MEDS: ASPIRIN EC 81 MG TABEC PO SCH (08:14)
[2017-06-09] MEDS: EZETIMIBE 10 MG TAB PO SCH (08:14)
[2017-06-09] MEDS: HEPARIN SODIUM - SQ 10,000 UNITS/ML VIAL SQ SCH ×2 (08:14→21:01)
[2017-06-09] MEDS: FENOFIBRATE 145 MG TAB PO SCH (08:14)
[2017-06-09] MEDS: DOCUSATE SODIUM 50 MG/SENNA 8.6 MG TAB PO SCH ×2 (08:14→21:01)
[2017-06-09] MEDS: SODIUM CHLORIDE 0.9% FLUSH 10 ML FLUSH IV FLUSH SCH ×2 (08:15→21:01)
[2017-06-09 11:31] LABS: AUTOMATED NEUTROPHIL # 5.7 TH/MM3 (1.8-7.7); BASOPHIL % 0.4 % (0.0-2.0); EOSINOPHIL # 0.3 TH/MM3 (0-0.4); EOSINOPHIL % 3.9 % (0.0-4.0); HEMATOCRIT 36.9 % (39.0-51.0); HEMOGLOBIN 12.5 GM/DL (13.0-17.0); LYMPH % 13.7 % (9.0-44.0); LYMPHOCYTE # 1.1 TH/MM3 (1.0-4.8); MEAN CELL VOLUME 91.3 FL (80.0-100.0); MEAN CORPUSCULAR HEMOGLOBIN 31.1 PG (27.0-34.0); MEAN PLATELET VOLUME 8.3 FL (7.0-11.0); MONOCYTE # 0.6 TH/MM3 (0-0.9); PLATELET COUNT 281 TH/MM3 (150-450); RED BLOOD COUNT 4.04 MIL/MM3 (4.50-5.90); RED CELL DISTRIBUTION WIDTH 14.6 % (11.6-17.2); WHITE BLOOD COUNT 7.7 TH/MM3 (4.0-11.0)
[2017-06-09 11:46] LABS: BICARBONATE 18.7 MEQ/L (21.0-32.0); CALCIUM 8.6 MG/DL (8.5-10.1); CREATININE 1.52 MG/DL (0.60-1.30)
--- NOTE | 2017-06-09 20:03 | HHI.PR ---
Subjective Remarks He appears comfortable at this time. Discussion was done with the Pulmonary Medicine consult and disposition is given for the patient to go home on oxygen due to hypoxemia on room air. The patient states that he understands and will have close follow as an outpatient. Objective - Vital Signs Date Time Temp Pulse Resp B/P (MAP) Pulse Ox O2 Delivery O2 Flow Rate FiO2 06/09/17 19:16 95 Nasal Cannula 3.00 06/09/17 16:23 97.5 78 18 127/69 (88) 95 06/09/17 11:54 97.9 80 20 137/66 (89) 94 06/09/17 08:07 97.9 78 20 164/77 (106) 92 06/09/17 07:58 94 Nasal Cannula 3.00 06/09/17 04:39 98.4 80 17 143/76 (98) 94 06/09/17 00:40 98.9 81 17 157/74 (101) 95 06/08/17 20:34 98.6 89 17 158/74 (102) 94 I/O 06/08/17 06/08/17 06/08/17 06/09/17 06/09/17 06/09/17 07:00 15:00 23:00 07:00 15:00 23:00 Intake Total 1375 ml 730 ml 240 ml 480 ml 600 ml Output Total 1825 ml 800 ml 800 ml Balance 1375 ml -1095 ml -560 ml -320 ml 600 ml Intake Oral 500 ml 480 ml 240 ml 480 ml 600 ml IV Total 875 ml 250 ml Output Urine Total 1825 ml 800 ml 800 ml # Voids 3 3 # Bowel Movements 1 1 Result Diagram: 06/09/17 1000 06/09/17 1000 Objective Remarks GENERAL: Alert and in no acute distress. SKIN: Warm and dry. HEAD: Normocephalic. EYES: No scleral icterus. No injection or drainage. NECK: Supple, trachea midline. No JVD or lymphadenopathy. CARDIOVASCULAR: Regular rate and rhythm without murmurs, gallops, or rubs. RESPIRATORY: Breath sounds equal bilaterally with mildly distant character. No accessory muscle use. GASTROINTESTINAL: Abdomen soft, non-tender, nondistended. MUSCULOSKELETAL: No cyanosis, or edema. BACK: Nontender without obvious deformity. No CVA tenderness. A/P Assessment and Plan ASSESSMENT 1. Acute Syncopal Episode. 2. Acute Exacerbation of Chronic Obstructive Pulmonary Disease. 3. Acute Hypoxemia. 4. Acute Kidney Injury-improved. 5. Orthostatic Hypotension-resolved. 6. Dehydration-resolved. 7. Benign Prostate Hypertrophy-urinary tract obstruction is ruled out. PLAN 1. Continue on the current medication regimen. 2. Continue with the use of supplemental oxygen per nasal cannula. 3. Pulmonary Medicine disposition is given. 4. Discharge Planning for home on oxygen. 5. DVT and PE prophylaxis Rigo Roland MD Jun 09, 2017 20:03
[2017-06-09] MEDS: ATORVASTATIN 20 MG TAB PO SCH (21:01)
[2017-06-10] VITALS: BP 133/64; PULSE 79; RESP 20; TEMP 97.9; O2SAT 94
[2017-06-10 05:20] VITALS: BP 132/79; PULSE 80; RESP 18; TEMP 97.3; O2SAT 97
[2017-06-10] MEDS: RESP: ALBUTEROL 2.5 MG/IPRATROPIUM 0.5 MG NEB (SCH) NEB ×2 (08:15→12:30)
[2017-06-10 08:17] VITALS: O2SAT 94
[2017-06-10] MEDS: MULTIVITAMINS/MINERALS THERAPEUTIC TAB PO SCH (09:24)
[2017-06-10] MEDS: DOCUSATE SODIUM 50 MG/SENNA 8.6 MG TAB PO SCH (09:25)
[2017-06-10] MEDS: amLODIPine BESYLATE 5 MG TAB PO SCH (09:25)
[2017-06-10] MEDS: PANTOPRAZOLE SOD 40 MG DELAYED RELEASE TAB PO SCH (09:25)
[2017-06-10] MEDS: FENOFIBRATE 145 MG TAB PO SCH (09:26)
[2017-06-10] MEDS: VENLAFAXINE HCL XR 75 MG CAP PO SCH (09:26)
[2017-06-10] MEDS: SERTRALINE HCL 50 MG TAB PO SCH (09:26)
[2017-06-10] MEDS: EZETIMIBE 10 MG TAB PO SCH (09:27)
[2017-06-10] MEDS: SODIUM CHLORIDE 0.9% FLUSH 10 ML FLUSH IV FLUSH SCH (09:28)
[2017-06-10] MEDS: ASPIRIN EC 81 MG TABEC PO SCH (09:28)
[2017-06-10] MEDS: HEPARIN SODIUM - SQ 10,000 UNITS/ML VIAL SQ SCH (09:32)
[2017-06-10 09:58] VITALS: BP 140/78; PULSE 66; RESP 18; TEMP 97.5; O2SAT 94
[2017-06-10] MEDS ORDERED: OXYGENDME NAS.CANULA (10:32)
--- NOTE | 2017-06-10 10:50 | HHI.PR ---
Subjective Remarks He is sitting up in the bed and states that he feel good. His breathing is better with use of the oxygen. He is looking forward to going home today. I just spoke with the field nurse case manager who assures that delivery of the oxygen can be today to his home. Objective - Vital Signs Date Time Temp Pulse Resp B/P (MAP) Pulse Ox O2 Delivery O2 Flow Rate FiO2 06/10/17 09:58 97.5 66 18 140/78 (98) 94 06/10/17 08:17 94 2.00 06/10/17 05:20 97.3 80 18 132/79 (96) 97 06/10/17 00:00 97.9 79 20 133/64 (87) 94 06/09/17 20:00 97.6 73 21 163/74 (103) 94 06/09/17 19:16 95 Nasal Cannula 3.00 06/09/17 16:23 97.5 78 18 127/69 (88) 95 06/09/17 11:54 97.9 80 20 137/66 (89) 94 I/O 06/09/17 06/09/17 06/09/17 06/10/17 06/10/17 06/10/17 07:00 15:00 23:00 07:00 15:00 23:00 Intake Total 480 ml 600 ml 500 ml Output Total 800 ml 400 ml Balance -320 ml 600 ml 100 ml Intake Oral 480 ml 600 ml 500 ml Output Urine Total 800 ml 400 ml # Voids 3 3 1 # Bowel Movements 1 0 Result Diagram: 06/09/17 1000 06/09/17 1000 Objective Remarks GENERAL: Alert. No acute distress. Appears comfortable with oxygen support. SKIN: Warm and dry. HEAD: Normocephalic. EYES: No scleral icterus. No injection or drainage. NECK: Supple, trachea midline. No JVD or lymphadenopathy. CARDIOVASCULAR: Regular rate and rhythm without murmurs, gallops, or rubs. RESPIRATORY: Breath sounds equal bilaterally. No accessory muscle use. GASTROINTESTINAL: Abdomen soft, non-tender, nondistended. MUSCULOSKELETAL: No cyanosis, or edema. BACK: Nontender without obvious deformity. No CVA tenderness. A/P Assessment and Plan ASSESSMENT 1. Acute Syncopal Episode. 2. Acute Exacerbation of Chronic Obstructive Pulmonary Disease. 3. Acute Hypoxemia. 4. Acute Kidney Injury. 5. Orthostatic Hypotension. 6. Dehydration. 7. Benign Prostate Hypertrophy-r/o urinary tract obstruction. MEDICALLY IMPROVED STATUS PLAN 1. Continue on the current medication regimen. 2. Continue with the use of supplemental oxygen per nasal cannula. 3. Pulmonary Medicine disposition is given. 4. Discharge Planning for home today. 5. DVT and PE prophylaxis. HOME TODAY WITH CLOSE OUTPATIENT FOLLOW UP Rigo Roland MD Jun 10, 2017 10:50
[2017-06-10 11:47] VITALS: BP 147/75; PULSE 68; RESP 20; TEMP 98.5; O2SAT 93
== END 2017-06-10 15:35 | disposition home or self-care (01) | DRG 191 ==
LOC: NEPC 16:39 → NEDA 21:59 → NEDH 06-07 01:59 → N05B 06-07 17:48
PROVIDERS: ADMIT Internal Medicine; ATTEND Internal Medicine
DX: J44.1 Chronic obstructive pulmonary disease with (acute) exacerbation (principal); N17.9 Acute kidney failure, unspecified; J84.9 Interstitial pulmonary disease, unspecified; Q87.418 Marfan syndrome with other cardiovascular manifestations; E86.0 Dehydration; R06.09 Other forms of dyspnea; R35.1 Nocturia; N40.1 Benign prostatic hyperplasia with lower urinary tract symptoms; R09.02 Hypoxemia; I95.1 Orthostatic hypotension; I44.0 Atrioventricular block, first degree; I12.9 Hypertensive chronic kidney disease with stage 1 through stage 4 chronic kidney disease, or unspecified chronic kidney disease; N18.9 Chronic kidney disease, unspecified; E78.5 Hyperlipidemia, unspecified; G47.30 Sleep apnea, unspecified; K21.9 Gastro-esophageal reflux disease without esophagitis; M48.061 Spinal stenosis, lumbar region without neurogenic claudication; M81.0 Age-related osteoporosis without current pathological fracture; F32.9 Major depressive disorder, single episode, unspecified; M19.90 Unspecified osteoarthritis, unspecified site; M51.9 Unspecified thoracic, thoracolumbar and lumbosacral intervertebral disc disorder; Z91.81 History of falling; Z87.891 Personal history of nicotine dependence
CPT/HCPCS: 36600; 70450; 71046; 72128; 72131; 72220; 73030; 76775; 78582; 80048; 80053; 81001; 82550; 82552; 82805; 83735; 83880; 83930; 84484; 85025; 85610; 85730; 93005; 93880; 94618; 94640; 94664; 96360; 96361; A9540; A9567; J1644; J7040

== ENCOUNTER → 2017-07-04 | Outpatient (CLI) | payer MEDICARE ==
[~2017-07-04] MED LIST changes: +ALEN1TAB48 PO; -ALFU10TA2 PO; +AMLO5TAB2 PO; -AMLO5TAB96 PO; -ASCO500C PO; +ASPI1TAB57 PO; -ASPI81TA82 PO; +ATOR20TA15 PO; -ATOR20TA42 PO; +CALC1TAB12 PO; -CALCCHW25 PO; +CENTCHW4 CHEW; -CENTTAB9 PO; +COQ1200C3; -LISI-360 PO; +OXYGENDME NAS.CANULA; +PANT40TA3 PO; -POTA99TA12 PO; -PROT40TA PO; +SERT-132 PO; -VENL-39 PO; +VENL75TA PO; +VITA1000 PO; +VITA500T83 PO
== END ==
LOC: PHRSP 07:37
PROVIDERS: ATTEND Internal Medicine
DX: J84.10 Pulmonary fibrosis, unspecified (principal)
CPT/HCPCS: 94060; 94618; 94726; 94729